=== PATIENT | male | born 1960 | race Two or more races ===

== ENCOUNTER 2024-09-11 14:42 | Outpatient (RCR) | payer MEDICARE, SELFPAY ==
--- NOTE | 2024-09-11 15:36 | CTCFLWUP_ITS ---
[facility] [address] [place], [place] [address] FOLLOW-UP NOTE Date: 09/11/2024 MR#: [id number] Name: LAW FERNANDO : 1960 Dx: C61 Malignant neoplasm of prostate Identification. Patient with history of prostate CA status [place] [facility] [place]. This revealed group 5 with preop PSA 75 pT3bN1, PSA started rising to 0.9 on 09/19/2023. Patient was initiated on Lupron injection and radiation therapy that was completed 02/24/2024 6840 cGy . Patient thus far has had 3 Lupron injections with next 1 due in October. Most recent labs 08/08/20 24 PSA less than 0.1 with unremarkable CBC and CMP, other than elevated glucose related to his diabet es. Patient states that he is tolerating the Lupron shots well with mild hot flashes type symptoms. Assessment.pT3bN1 prostate CA status post prostatectomy 02/16/2023. Group 5 preop PSA 75 2. 3 injections of 9 months Lupron and radiation therapy completed 02/24/2024. 3. Follow-up in 3 months with another Lupron injections due in October next year. 4. Reminded patient to take Citracal twice daily Electronically signed by: Aamir Lozano M.D. 09/11/2024 3:34 PM
== END 2024-09-29 23:59 | disposition home or self-care (01) ==
LOC: SCTC 14:42
PROVIDERS: PCP Physician Assistant; Referring Provider Physician Assistant; Visit Provider Radiology Therapeutic Radiology
DX: C61 Malignant neoplasm of prostate (principal); Z90.79 Acquired absence of other genital organ(s); Z92.3 Personal history of irradiation; Z79.818 Long term (current) use of other agents affecting estrogen receptors and estrogen levels
CPT/HCPCS: 99213; G0463

== ENCOUNTER → 2024-11-12 | Outpatient (BNVA) | payer MEDICARE, SELFPAY | END | disposition home or self-care (01) | PROVIDERS: PCP Physician Assistant; Referring Provider Physician Assistant; Visit Provider Urology | DX: C61 Malignant neoplasm of prostate (principal); Z90.79 Acquired absence of other genital organ(s); N52.9 Male erectile dysfunction, unspecified; Z92.3 Personal history of irradiation; I10 Essential (primary) hypertension | CPT/HCPCS: 81003; 99212; G0463 ==

== ENCOUNTER 2024-12-12 13:05 | Outpatient (RCR) | payer MEDICARE, SELFPAY ==
--- NOTE | 2024-12-12 13:43 | CTCTRTNOTE_ITS ---
[facility] [address] [place], [place] [address] FOLLOW-UP NOTE Date: 12/12/2024 MR#: [id number] Name: LAW FERNANDO : 1960 Dx: C61 Malignant neoplasm of prostate Identification. Patient with history of prostate CA status post robotic prostatectomy performed at [facility] 02/16/2023. This revealed group 5 adeno CA with preop PSA 75 pT3bN1 PSA started rising to 0.911 2022. Initiated on Lupron injection radiation therapy that was completed on 02/24/2024 6840 cGy. Most recent lab 08/08/2024 PSA less than 0.1. Patient having the usual side effects of hot flashes etc. denies any other significant symptoms. Patient is taking vitamin D with calcium. Unfortunate because of insurance change he could not take the October scale of Lupron. We are resubmitting it to have it done hopefully sometime in December with new [employer] insurance. Assessment #1 CA f prostate Ying's group 5 preop PSA 75 surgery [facility] 02/16/2023. pT3bN1 with rising PSA 0.9 08/2023. #2. Lupron injections and postoperation radiation therapy completed 02/24/2024. #3. Recommend 2 years worth of Lupron injection for the high risk, but only took a years worth and could not take the October scheduled due to insurance change. #4 resubmit the order with new insurance and hopefully will get it. soon this month. #5. Continue with vitamin D calcium Citracal twice daily #6. CBC CMP PSA prior to next visit in 3 months. Electronically signed by: Aamir Lozano M.D. 12/12/2024 1:41 PM
== END 2024-12-28 23:59 | disposition home or self-care (01) ==
LOC: SCTC 13:05
PROVIDERS: PCP Internal Medicine; Referring Provider Internal Medicine; Visit Provider Radiology Therapeutic Radiology
DX: C61 Malignant neoplasm of prostate (principal); Z79.818 Long term (current) use of other agents affecting estrogen receptors and estrogen levels; Z92.3 Personal history of irradiation; Z90.79 Acquired absence of other genital organ(s)
CPT/HCPCS: 99213; G0463

== ENCOUNTER 2025-01-08 15:33 | Outpatient (RCR) | payer MEDICARE, SELFPAY | END 2025-01-28 23:59 | disposition home or self-care (01) | LOC: SCTC 15:33 | PROVIDERS: PCP Physician Assistant; Referring Provider Radiology Therapeutic Radiology; Visit Provider Radiology Therapeutic Radiology | DX: Z51.11 Encounter for antineoplastic chemotherapy (principal); C61 Malignant neoplasm of prostate; Z90.79 Acquired absence of other genital organ(s); Z79.818 Long term (current) use of other agents affecting estrogen receptors and estrogen levels | CPT/HCPCS: 96402; J9217 ==

== ENCOUNTER 2025-03-14 15:01 | Outpatient (RCR) | payer MEDICARE, SELFPAY ==
--- NOTE | 2025-03-14 15:52 | CTCFLWUP_ITS ---
[facility] [address] [place], [place] [address] FOLLOW-UP NOTE Date: 03/14/2025 MR#: [id number] Name: LAW FERNANDO : 1960 Dx: C61 Malignant neoplasm of prostate 64-year-old gentleman with history of prostate CA underwent radical prostatectomy 02/16/2023 at [facility]. Preop PSA was 75. Final path group 5 Ying score 4+5 = 9 with extraprostatic extension PSA irina to 0.9 in 09/19/2023. Postop XRT 6840 cGy completed 02/24/2024 with concomitant Lupron injections. Patient thus far completed 5 injections for a year and a half. Most recent PSA less than 0.1 on 03/06/2025. Tolerating the injections well. Patient taking Citracal vitamin D calcium. Will schedule for the next injection next month and see him again in 3 months with another PSA. Electronically signed by: Aamir Lozano M.D. 03/14/2025 3:50 PM
== END 2025-03-30 23:59 | disposition home or self-care (01) ==
LOC: SCTC 15:01
PROVIDERS: PCP Physician Assistant; Referring Provider Physician Assistant; Visit Provider Radiology Therapeutic Radiology
DX: C61 Malignant neoplasm of prostate (principal); Z90.79 Acquired absence of other genital organ(s); Z92.3 Personal history of irradiation; Z79.818 Long term (current) use of other agents affecting estrogen receptors and estrogen levels
CPT/HCPCS: 99213; G0463

== ENCOUNTER 2025-04-10 14:42 | Outpatient (RCR) | payer MEDICARE, SELFPAY | END 2025-04-29 23:59 | disposition home or self-care (01) | LOC: SCTC 14:42 | PROVIDERS: PCP Physician Assistant; Referring Provider Physician Assistant; Visit Provider Radiology Therapeutic Radiology | DX: Z51.11 Encounter for antineoplastic chemotherapy (principal); C61 Malignant neoplasm of prostate; Z90.79 Acquired absence of other genital organ(s); Z92.3 Personal history of irradiation | CPT/HCPCS: 96402; J9217 ==

== ENCOUNTER → 2025-06-27 | Outpatient (CLI) | payer MEDICARE, MEDICAID, SELFPAY ==
--- NOTE | 2025-06-27 14:15 | XR_ITS ---
Examination: Bone densitometry Date and time of exam:June 27, 2025 1438 hours INDICATIONS: 65-year-old male with diagnosis age related osteoporosis, malignant neoplasm prostate Technique: Lumbar spine and hip total bone mineralization values of an calculated. Peak reference and age match control results have been displayed. Findings: Lumbar spine total bone mineralization is1.086 gm/cm2. This is 0.0 standard deviations at peak reference. This is 0.8 standard deviations above age-matched controls. Hip total bone mineralization is 0.948 gm/cm2 This is 0.8 standard deviations below peak reference. This is 0.2 standard deviations below age-matched controls Impression: There is normal mineralization. based on lumbar spine measurements. There is osteopenia. based on hip measurements
== END | disposition home or self-care (01) ==
PROVIDERS: PCP Physician Assistant; Referring Provider Nurse Practitioner Primary Care; Visit Provider Nurse Practitioner Primary Care
DX: M85.88 Other specified disorders of bone density and structure, other site (principal)
CPT/HCPCS: 77080

== ENCOUNTER 2025-07-11 15:29 | Outpatient (RCR) | payer MEDICARE, SELFPAY ==
--- NOTE | 2025-07-10 14:51 | CTCFLWUP_ITS ---
[facility] [address] [place], [place] [address] FOLLOW-UP NOTE Date: 07/10/2025 MR#: [id number] Name: LAW FERNANDO : 1960 Dx: C61 Malignant neoplasm of prostate Identification. Patient with history of prostate CA underwent radical prostatectomy 02/16/2023 at [facility]. pT3b N1 Preop PSA was 75. Final path group 5 Ying score 4+5 = 9 with extraprostatic extension. PSA irina to 0.9 on 09/19/2023. Postop XRT 6840 cGy completed 02/24/2024 with concomitant Lupron injections. Patient will have completed 6 3 months injections as of tomorrow or 2 months worth PSA 07/03/2023 less than 0.1. Labs CBC CMP fairly unremarkable. Patient tolerating Lupron injections well except for the predictable side effects of hot flashes. Spoke to patient about the benefit of adding a newer antiandrogen due to the fact that he is a high risk patient. A#1. Radical prostatectomy 02/16/2023 [facility] pT3bN1 A#2. Postop XRT 6840 cGy completed 02/24/2024 Lupron 2 years.-Taking calcium and vitamin D A#3. PSAs remains low at less than 0.1 07/03/2025 A#4. Patient referred to see medical oncologist Dr. Monroe about adding one of the newer antiandrogens due to the fact that he is a high risk patient for recurrence and still reasonably young. Cc: Samantha Segovia MD Electronically signed by: Aamir Lozano M.D. 07/10/2025 2:49 PM
== END 2025-07-30 23:59 | disposition home or self-care (01) ==
LOC: SCTC 15:29
PROVIDERS: PCP Physician Assistant; Referring Provider Physician Assistant; Visit Provider Radiology Therapeutic Radiology
DX: Z51.11 Encounter for antineoplastic chemotherapy (principal); C61 Malignant neoplasm of prostate; Z90.79 Acquired absence of other genital organ(s); Z92.3 Personal history of irradiation
CPT/HCPCS: 96402; 99213; J9217; G0463

== ENCOUNTER 2025-10-10 12:57 | Outpatient (RCR) | payer MEDICARE, MEDICAID, SELFPAY ==
--- NOTE | 2025-10-09 15:52 | CTCFLWUP_ITS ---
[facility] [address] [place], [place] [address] FOLLOW-UP NOTE Date: 10/09/2025 MR#: [id number] Name: LAW FERNANDO : 1960 Dx: C61 Malignant neoplasm of prostate Identification. Patient with history of prostate CA status post robotic prostatectomy performed 02/16/2023. Preop PSA 75 final path group 5 [place] score 4+5 = 9 with high risk features.[id number] PSA also noted to rise to 0.9 on 09/19/2023. PET scan 12/08/2023 showed no findings of met disease. Postoperation radiation therapy completed 6840 cGy via VMAT 02/24/2024. Patient received concomitant Lupron and since then has received 5 over a year and a half worth. Tolerating well. Most recent PSA <0.1 09/23/2025. A#!. Robotic prostatectomy for CA the prostate [id number] [facility] 02/16/2023. A#2. Postop XRT for high risk features and rising PSA (0.9) 6840 cGy completed 02/24/2024. A#3. Has had about 1-1/2 years worth of Lupron, tolerating well doing well clinically with most recent PSA less than 0.1 09 23 25. A#4. Patient has been taking calcium and vitamin supplements. A#5. I will ask him to see Dr. Monroe medical oncologist about poss benefit of adding one of the newer antiandrogens despite the fact that he has done well overall due to high risk features noted at the time of operation and his relative youth.. A#6. He will continue Lupron injections every 3 months for the time being. Cc: Samantha Segovia MD Electronically signed by: Aamir Lozano M.D. 10/09/2025 3:50 PM
== END 2025-10-30 23:59 | disposition home or self-care (01) ==
LOC: SCTC 12:57
PROVIDERS: PCP Physician Assistant; Referring Provider Physician Assistant; Visit Provider Radiology Therapeutic Radiology
DX: Z51.11 Encounter for antineoplastic chemotherapy (principal); C61 Malignant neoplasm of prostate; Z90.79 Acquired absence of other genital organ(s); Z92.3 Personal history of irradiation
CPT/HCPCS: 96402; 99213; J9217; G0463